=== PATIENT | female | born 2000 ===

== ENCOUNTER 2023-08-11 13:57 | Emergency (ER) | payer SELFPAY ==
--- NOTE | 2023-08-11 14:13 | PC.NURSE ---
Patient stated she will go to another facility after hearing wait time announcement in ER waiting room.
== END 2023-08-11 14:15 | disposition left against medical advice (07) ==
DX: Z53.21 Procedure and treatment not carried out due to patient leaving prior to being seen by health care provider (principal)
CPT/HCPCS: 99199

== ENCOUNTER 2024-11-16 15:52 | Emergency (ER) | payer OTHER, SELFPAY ==
--- NOTE | ~2024-11-16 | XR_ITS ---
CHEST RADIOGRAPH, PA AND LATERAL CLINICAL HISTORY: cough, congestion . COMPARISON: None available TECHNIQUE: PA and lateral views of the chest. FINDINGS The cardiomediastinal silhouette is unremarkable. The lungs are clear. Visualized osseous structures and soft tissues are unremarkable. IMPRESSION: No focal infiltrate or effusion. Reviewed, dictated and finalized at location A.
[2024-11-16 15:58] VITALS: BP 178/81; PULSE 91; RESP 16; TEMP 36.4; O2SAT 98
--- NOTE | 2024-11-16 16:44 | ED_ITS ---
HPI - URI/Sore Throat General Chief Complaint: Upper Respiratory Infection <Li Yoo PA-C - Last Filed: 11/17/24 09:28> Stated Complaint: Cough, runny nose, dizziness <Li Yoo PA-C - Last Filed: 11/17/24 09:28> Time Seen by Provider: 11/16/24 16:44 <Li Yoo PA-C - Last Filed: 11/17/24 09:28> Focused HPI: This is a 24 year old female that presents to the ER for cold symptoms. Ongoing over the last couple of days. Reports cough, pleuritic chest pain, diarrhea, dizziness. Denies fevers. GENERAL: Well-appearing, well-nourished, and in no acute distress. HEAD: Normocephalic, atraumatic. CHEST: Clear to auscultation. ?No respiratory distress. HEART: Regular rate and rhythm.? NEURO: ?Alert and oriented x3. Patient screened in triage and initial orders placed.? ?Additional care and disposition to be based upon?diagnostic testing and treatment. <Li Yoo PA-C - Last Filed: 11/17/24 09:28> History of Present Illness HPI Narrative: Agree with the HPI above. Patient has had sick contacts with similar symptoms at home. No recent hospital visits or antibiotics. <Minh Morocho MD - Last Filed: 11/16/24 20:02> Related Data Allergies/Adverse Reactions: Allergies Allergy/AdvReac Type Severity Reaction Status Date / Time amoxicillin Allergy Severe Swelling Verified 11/16/24 15:54 of Lip/Tongue/Throat Penicillins Allergy Severe Swelling Verified 11/16/24 15:54 of Lip/Tongue/Throat <Li Yoo PA-C - Last Filed: 11/17/24 09:28> Review of Systems 2 Review of Systems: As reviewed above in HPI <Minh Morocho MD - Last Filed: 11/16/24 20:02> Exam 2 Narrative: GENERAL: [Well-appearing, well-nourished, and in no acute distress.] HEAD: [Normocephalic, atraumatic.] EYES: [PERRLA and EOMI.] ENT: Nares clear, rhinorrhea, congested, moist mucous membranes. Mildly tender lymphadenopathy NECK: Supple. CHEST: Coarse breath sounds right worse than left but good aeration, no wheezing or prolonged expiratory phase HEART: [Regular rate and rhythm]. No murmur heard. [Normal peripheral pulses.] ABDOMEN: [Soft, nondistended], [nontender], [No rigidity or guarding] EXTREMITIES: Normal range of motion. [No edema.] SKIN: Warm, dry, no rash. NEURO: [No focal deficits]. Alert and oriented [x3.] PSYCH: [Normal mood and affect.] <Minh Morocho MD - Last Filed: 11/16/24 20:02> Course Vital Signs Vital signs: Vital Signs Temperature 97.6 F 11/16/24 15:58 Pulse Rate 91 11/16/24 15:58 Respiratory Rate 16 11/16/24 15:58 Blood Pressure 178/81 H 11/16/24 15:58 Pulse Oximetry 98 11/16/24 15:58 Temperature 97.7 F 11/16/24 20:13 Pulse Rate 95 11/16/24 20:13 Respiratory Rate 18 11/16/24 20:13 Blood Pressure 164/78 H 11/16/24 20:13 Pulse Oximetry 98 11/16/24 20:13 Oxygen Delivery Room Air 11/16/24 19:51 <Li Yoo PA-C - Last Filed: 11/17/24 09:28> Vital Signs Temperature 97.6 F 11/16/24 15:58 Pulse Rate 91 11/16/24 15:58 Respiratory Rate 16 11/16/24 15:58 Blood Pressure 178/81 H 11/16/24 15:58 Pulse Oximetry 98 11/16/24 15:58 Temperature 97.7 F 11/16/24 20:13 Pulse Rate 95 11/16/24 20:13 Respiratory Rate 18 11/16/24 20:13 Blood Pressure 164/78 H 11/16/24 20:13 Pulse Oximetry 98 11/16/24 20:13 Oxygen Delivery Room Air 11/16/24 19:51 <Minh Morocho MD - Last Filed: 11/16/24 20:02> MDM - URI/Sore Throat MDM Narrative Medical decision making narrative: 24-year-old female presenting with several days of upper respiratory infection symptoms including a pleuritic cough, productive cough, congestion rhinorrhea. She states that she has had some inspiratory chest pain as well. Endorses sick contacts. No fever, chills, chest pain at rest or exertion. She is morbidly obese but otherwise not having chronic medical conditions. Mildly hypertensive in triage vitals but not severe range. No tachycardia, fever, hypoxia. She has coarse bilateral breath sounds right worse than left and signs of an upper respiratory infection with congestion and rhinorrhea. Symptoms most likely consistent with upper respiratory tract infection, lower respiratory tract infection such as bronchitis, pneumonia. Suspect possible viral versus bacterial etiology. Laboratory studies were ordered including CBC, CMP, COVID swabs, EKG and chest x-ray as well as a troponin given the pleuritic chest pain nature. Patient denies any chance of . Workup shows no leukocytosis or anemia. Normal platelet count. Electrolytes are normal, normal renal function, normal glucose, mildly elevated LFTs. Negative troponin. X-ray without any acute infiltrate or effusion. Viral panel negative, test negative. Patient will be treated for bronchitis at this time given her symptomatic features and was given a dose of azithromycin here and Medrol. Will be sent home on combination of Medrol Dosepak and Z-Dat. Patient agreeable to plan of care and follow-up with her primary care provider. She was given return precautions and safely discharged. <Minh Morocho MD - Last Filed: 11/16/24 20:02> Medical Records Attestation: I reviewed the patient's medical records. <Minh Morocho MD - Last Filed: 11/16/24 20:02> Lab Data Attestation: I reviewed the patient's lab results. <Minh Morocho MD - Last Filed: 11/16/24 20:02> Result diagrams: 11/16/24 17:11 11/16/24 17:11 <Li Yoo PA-C - Last Filed: 11/17/24 09:28> Labs: Lab Results 11/16/24 11/16/24 Range/Units 17:11 17:57 WBC 8.7 (4.5-10.0) K/mm3 RBC 5.22 (4.2-5.4) M/mm3 Hgb 15.1 H (12.0-15.0) g/dL Hct 45.4 (37.0-47.0) % MCV 87.0 (80-100) fl MCH 28.9 (26-34) pg MCHC 33.3 (32-36) g/dl RDW 13.3 (11.5-14.5) % Plt Count 254 (150-375) k/mm3 MPV 10.8 H (7.4-10.4) fl Immature Gran % (Auto) 0.6 H (0-0.5) % Neut % (Auto) 58.6 (45.5-73.1) % Lymph % (Auto) 31.0 (18.3-44.2) % Mclean % (Auto) 7.8 (2.6-8.5) % Eos % (Auto) 1.4 (0-4.4) % Baso % (Auto) 0.6 (0.2-1.2) % Lymph # (Auto) 2.69 (0.9-3.2) K/mm3 Mclean # (Auto) 0.7 H (0.1-0.6) K/mm3 Eos # (Auto) 0.1 (0-0.3) K/mm3 Baso # (Auto) 0.1 (0.0-0.1) K/mm3 Abs Immat Gran (auto) 0.05 H (0.00-0.031) K/mm3 Absolute Neuts (auto) 5.1 (1.3-6.7) K/mm3 Absolute Nucleated RBC 0.000 (0.0-0.012) K/mm3 Nucleated RBC % 0.0 (0.0-0.2) % Sodium 136 L (137-145) mmol/L Potassium 3.8 (3.4-5.0) mmol/L Chloride 105 (98-107) mmol/L Carbon Dioxide 23 (22-30) mmol/L Anion Gap 8 (4-12) mmol/L BUN 10 (7-17) mg/dL Creatinine 0.61 L (0.7-1.0) mg/dL Estim Creat Clear Calc 184 ml/min Estimated GFR > 60 (59 - ) Glucose 116 H (65-110) mg/dL Calcium 9.0 (8.4-10.2) mg/dL Total Bilirubin 0.3 (0.2-1.3) mg/dL AST 66 H (14-36) U/L ALT 52 H (6-35) U/L Alkaline Phosphatase 93 (38-126) U/L Troponin I < 0.012 (0.000-0.034) ng/mL Total Protein 8.0 (6.3-8.2) g/dL Albumin 4.3 (3.5-5.1) g/dL POC Urine HCG, Qual Negative (Negative) Influenza A (RT-PCR) Negative (Negative) Influenza B (RT-PCR) Negative (Negative) RSV (RT-PCR) Negative (Negative) SARS-CoV-2 RNA (RT-PCR) Negative (Negative) <Li Yoo PA-C - Last Filed: 11/17/24 09:28> Lab Results 11/16/24 11/16/24 Range/Units 17:11 17:57 WBC 8.7 (4.5-10.0) K/mm3 RBC 5.22 (4.2-5.4) M/mm3 Hgb 15.1 H (12.0-15.0) g/dL Hct 45.4 (37.0-47.0) % MCV 87.0 (80-100) fl MCH 28.9 (26-34) pg MCHC 33.3 (32-36) g/dl RDW 13.3 (11.5-14.5) % Plt Count 254 (150-375) k/mm3 MPV 10.8 H (7.4-10.4) fl Immature Gran % (Auto) 0.6 H (0-0.5) % Neut % (Auto) 58.6 (45.5-73.1) % Lymph % (Auto) 31.0 (18.3-44.2) % Mclean % (Auto) 7.8 (2.6-8.5) % Eos % (Auto) 1.4 (0-4.4) % Baso % (Auto) 0.6 (0.2-1.2) % Lymph # (Auto) 2.69 (0.9-3.2) K/mm3 Mclean # (Auto) 0.7 H (0.1-0.6) K/mm3 Eos # (Auto) 0.1 (0-0.3) K/mm3 Baso # (Auto) 0.1 (0.0-0.1) K/mm3 Abs Immat Gran (auto) 0.05 H (0.00-0.031) K/mm3 Absolute Neuts (auto) 5.1 (1.3-6.7) K/mm3 Absolute Nucleated RBC 0.000 (0.0-0.012) K/mm3 Nucleated RBC % 0.0 (0.0-0.2) % Sodium 136 L (137-145) mmol/L Potassium 3.8 (3.4-5.0) mmol/L Chloride 105 (98-107) mmol/L Carbon Dioxide 23 (22-30) mmol/L Anion Gap 8 (4-12) mmol/L BUN 10 (7-17) mg/dL Creatinine 0.61 L (0.7-1.0) mg/dL Estim Creat Clear Calc 184 ml/min Estimated GFR > 60 (59 - ) Glucose 116 H (65-110) mg/dL Calcium 9.0 (8.4-10.2) mg/dL Total Bilirubin 0.3 (0.2-1.3) mg/dL AST 66 H (14-36) U/L ALT 52 H (6-35) U/L Alkaline Phosphatase 93 (38-126) U/L Troponin I < 0.012 (0.000-0.034) ng/mL Total Protein 8.0 (6.3-8.2) g/dL Albumin 4.3 (3.5-5.1) g/dL POC Urine HCG, Qual Negative (Negative) Influenza A (RT-PCR) Negative (Negative) Influenza B (RT-PCR) Negative (Negative) RSV (RT-PCR) Negative (Negative) SARS-CoV-2 RNA (RT-PCR) Negative (Negative) <Minh Morocho MD - Last Filed: 11/16/24 20:02> Imaging Data Attestation: I personally reviewed and interpreted this imaging study as follows: < Minh Morocho MD - Last Filed: 11/16/24 20:02> My impression: Impressions Chest X-Ray 11/16/24 16:13 IMPRESSION: No focal infiltrate or effusion. <Minh Morocho MD - Last Filed: 11/16/24 20:02> Critical Care Time Critical Care Time Critical Care Time: No <Li Yoo PA-C - Last Filed: 11/17/24 09:28> Discharge Plan Discharge Clinical Impression: Bronchitis, Productive cough <Li Yoo PA-C - Last Filed: 11/17/24 09:28> Patient Disposition: Home <Li Yoo PA-C - Last Filed: 11/17/24 09:28> Condition: Stable <EDWIGE Means Last Filed: 11/17/24 09:28> Instructions: Antibiotic Form, Acute Bronchitis (ED) <Li Yoo PA-C - Last Filed: 11/17/24 09:28> Additional Instructions: Your symptoms are consistent with bronchitis which is either viral or bacterial respiratory infection. We will treat this with a course of antibiotics and steroids for symptom control. Take medications as prescribed and follow-up with regular doctor. Return with any new or worsening concerns otherwise keep regular follow-up visits with your PCP. 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
--- NOTE | 2024-11-16 16:46 | ECG_ITS ---
Test Date: 2024-11-16 17:00:46 Measurements Intervals [place] Rate: 81 P: 31 MD: 151 QRS: 6 QRSD: 89 T: 29 QT: 375 QTc: 437 Interpretive Statements SINUS RHYTHM No previous ECG available for comparison Electronically Signed On 11-17-2024 15:13:51 CDT by Clif Rincon M.D.
[2024-11-16 17:22] LABS: Basophils Absolute Auto 0.1 K/mm3 (0.0-0.1); Basophils Percent Auto 0.6 % (0.2-1.2); Eosinophils Absolute Auto 0.1 K/mm3 (0-0.3); Eosinophils Percent Auto 1.4 % (0-4.4); Hematocrit 45.4 % (37.0-47.0); Hemoglobin 15.1 g/dL (12.0-15.0); Immature Granulocyte Absolute 0.05 K/mm3 (0.00-0.031); Immature Granulocyte Percent A 0.6 % (0-0.5); Lymphocytes Absolute Auto 2.69 K/mm3 (0.9-3.2); Mean Corpuscular HGB Conc 33.3 g/dl (32-36); Mean Corpuscular Hemoglobin 28.9 pg (26-34); Mean Platelet Volume 10.8 fl (7.4-10.4); Monocytes Absolute Auto 0.7 K/mm3 (0.1-0.6); Monocytes Percent Auto 7.8 % (2.6-8.5); Neutrophils Absolute Auto 5.1 K/mm3 (1.3-6.7); Neutrophils Percent Auto 58.6 % (45.5-73.1); Platelet Count Result 254 k/mm3 (150-375); Red Blood Count 5.22 M/mm3 (4.2-5.4); Red Cell Distribution Width 13.3 % (11.5-14.5); White Blood Count 8.7 K/mm3 (4.5-10.0)
[2024-11-16 17:41] LABS: Alanine Aminotransferase 52 U/L (6-35); Albumin Level 4.3 g/dL (3.5-5.1); Alkaline Phosphatase 93 U/L (38-126); Anion Gap 8 mmol/L (4-12); Aspartate Amino Transferase 66 U/L (14-36); Bilirubin,Total 0.3 mg/dL (0.2-1.3); Blood Urea Nitrogen 10 mg/dL (7-17); Carbon Dioxide 23 mmol/L (22-30); Chloride 105 mmol/L (98-107); Estimated CRCL calculation 184 ml/min; Estimated Glomerular Filt Rate > 60; Glucose 116 mg/dL (65-110); Potassium 3.8 mmol/L (3.4-5.0); Sodium 136 mmol/L (137-145)
[2024-11-16 17:52] LABS: Troponin I < 0.012 ng/mL (0.000-0.034)
[2024-11-16 17:59] LABS: Influenza A QL RT-PCR Negative (Negative); Influenza B QL RT-PCR Negative (Negative); RSV RNA, RT-PCR Negative (Negative); SARS-CoV-2 RNA PCR Negative (Negative)
[2024-11-16 17:59] LABS: BEDSIDEPREGUCG Negative (Negative)
[2024-11-16] MEDS: methylPREDNISolone 4 MG TABLET PO (20:09)
[2024-11-16] MEDS: AZITHROMYCIN 250 MG TABLET 500 MG PO (20:10)
[2024-11-16 20:13] VITALS: BP 164/78; PULSE 95; RESP 18; TEMP 36.5; O2SAT 98
== END 2024-11-16 20:14 | disposition home or self-care (01) ==
PROVIDERS: Emergency Medicine; Physician Assistant; Emergency Provider Student in an Organized Health Care Education/Training Program
DX: J40 Bronchitis, not specified as acute or chronic (principal); Z20.822 Contact with and (suspected) exposure to COVID-19
CPT/HCPCS: 36415; 71046; 80053; 81025; 84484; 85025; 87637; 93005; 99284; A9270